=== PATIENT | male | born 1940 | race Caucasian/White ===

== ENCOUNTER 2016-10-27 12:26 | Day surgery (SDC) | payer MEDICARE, OTHER ==
[2016-10-27] MEDS ORDERED: LACTATED RINGERS 1,000 ML IV ONE (12:55)
[2016-10-27] MEDS ORDERED: MIDAZOLAM 2 MG/2 ML VIAL IVP ONE (13:20)
[2016-10-27] MEDS ORDERED: fentaNYL 250 MCG/5 ML VIAL IVP ONE (13:20)
[2016-10-27] MEDS ORDERED: SIMETHICONE 40 MG/0.6 ML 30 ML BOTTLE PO ONE (13:21)
== END 2016-10-27 12:27 | disposition home or self-care (01) ==
PROC: 0DJD8ZZ Inspection of Lower Intestinal Tract, Via Natural or Artificial Opening Endoscopic (ICD-10-PCS; principal; 2016-10-27 13:30)
DX: Z12.11 Encounter for screening for malignant neoplasm of colon (principal); K64.8 Other hemorrhoids; K57.30 Diverticulosis of large intestine without perforation or abscess without bleeding; Z86.010 Personal history of colon polyps; E11.9 Type 2 diabetes mellitus without complications; Z79.84 Long term (current) use of oral hypoglycemic drugs; Z79.82 Long term (current) use of aspirin; E78.00 Pure hypercholesterolemia, unspecified; E66.9 Obesity, unspecified; Z68.38 Body mass index [BMI] 38.0-38.9, adult
CPT/HCPCS: A9270; G0121; J3010; J7120

== ENCOUNTER 2017-08-13 17:00 | Outpatient (CLI) | payer MEDICARE, OTHER ==
--- NOTE | 2017-08-13 17:38 | XRAY Preliminary Report ---
Exam: XR CHEST 2 VIEW PA/LAT IMPRESSION: No focal pneumonia. [facility] SITE ID: [id number]
--- NOTE | 2017-08-13 17:41 | XRAY Report ---
EXAM: CHEST RADIOGRAPHY EXAM DATE: 08/13/2017 05:25 PM. CLINICAL HISTORY: WHEEZING,COUGH. COMPARISON: None. TECHNIQUE: 2 views. FINDINGS: Lungs/Pleura: No focal opacities evident. No pleural effusion. No pneumothorax. Normal volumes. Mediastinum: The heart size is normal. Previous sternotomy noted with multiple fractured sternotomy w ires. Other: None. IMPRESSION: No focal pneumonia. [facility] Referring Provider Line: [phone] SITE ID: [id number]
== END 2017-08-13 17:01 | disposition home or self-care (01) ==
LOC: DI 17:00
PROVIDERS: ATTEND Internal Medicine
DX: R05 Cough (principal); R06.2 Wheezing; R06.09 Other forms of dyspnea
CPT/HCPCS: 71020; 83880

== ENCOUNTER 2018-01-19 15:48 | Outpatient (CLI) | payer MEDICARE, OTHER ==
[2018-01-19 16:20] LABS: CALCIUM 8.2 mg/dL (8.5-10.3); CREATININE 1.2 mg/dL (0.6-1.2)
== END 2018-01-19 15:49 | disposition home or self-care (01) ==
LOC: LAB 15:48
PROVIDERS: ATTEND Internal Medicine Cardiovascular Disease
DX: Z79.899 Other long term (current) drug therapy (principal)
CPT/HCPCS: 36415; 80048

== ENCOUNTER 2018-03-12 20:25 | Emergency (ER) | payer MEDICARE, OTHER ==
--- NOTE | 2018-03-12 20:48 | ED Physician Documentation ---
PD HPI BACK PAIN - Stated complaint Stated Complaint: VOMIT/BACK PX - Chief complaint Chief Complaint: Abd Pain - History obtained from History obtained from: Patient - History of Present Illness Timing - onset: Enter time (1629), Today Timing - duration: Hours Timing - details: Abrupt onset, Still present Location: Mid Quality: Pain Associated symptoms: No: Fever, Weakness, Numbness, Incontinent of urine, Hematuria, Incontinent of stool Improves with: Rest, Position Worsened by: Movement Similar symptoms before: Has not had sx before Recently seen: Not recently seen - Additional information Additional information: 77-year-old male was well yesterday and earlier today and at about 430 this afternoon he began developed some pain across his mid abdomen and has distention of his abdomen and a fair amount of eructations. He has not had a bowel movement today and he is not passing flatus. He has had a prior cholecystectomy and quintuple bypass. He denies chest pain he denies shortness of breath he denies any recent illness. He recalls eating a related hamburger for lunch today at about 1 PM., He does not drink alcohol. Review of Systems Constitutional: denies: Fever Eyes: denies: Decreased vision Ears: denies: Ear pain Nose: denies: Congestion Throat: denies: Sore throat Cardiac: denies: Chest pain / pressure, Palpitations Respiratory: denies: Dyspnea, Cough GI: reports: Abdominal Pain, Abdominal Swelling, Vomiting. denies: Nausea, Constipation, Diarrhea : denies: Dysuria, Frequency Skin: denies: Rash Musculoskeletal: reports: Back pain. denies: Neck pain, Extremity pain Neurologic: denies: Generalized weakness, Focal weakness, Numbness PD PAST MEDICAL HISTORY - Past Medical History Cardiovascular: Hypertension, High cholesterol, Coronary artery disease, [place], Murmur Respiratory: None Endocrine/Autoimmune: Type 2 diabetes GI: Colon polyps : Benign prostate hypertrophy HEENT: None Psych: None Musculoskeletal: None, Osteoarthritis Derm: None - Past Surgical History General: Cholecystectomy, Colonoscopy Ortho: Spine surgery Cardiovascular: CABG, Cardiac catheterization, Other - Present Medications Home Medications: Ambulatory Orders Medication Instructions Recorded Confirmed Aspirin 2 tab PO DAILY 10/24/16 10/24/16 Atorvastatin Calcium [Lipitor] 40 mg PO DAILY 10/24/16 10/27/16 Glipizide [Glipizide Xl] 2.5 mg PO DAILY 10/24/16 10/27/16 Losartan Potassium 100 mg PO DAILY 10/24/16 10/27/16 Metformin HCl 500 tab PO BID 10/24/16 10/27/16 Metoprolol Succinate [Toprol Xl] 150 mg PO DAILY 10/24/16 10/27/16 Ubidecarenone [Co Q-10] 200 mg PO DAILY 10/24/16 10/27/16 amLODIPine [Norvasc] 2.5 mg PO ONCE 03/12/18 03/12/18 - Allergies Allergies/Adverse Reactions: Allergies Allergy/AdvReac Type Severity Reaction Status Date / Time ticlopidine HCl * Allergy Rash Verified 10/24/16 15:13 [From Ticlid] PD ED PE NORMAL - Vitals Vital signs reviewed: Yes (hypertensive) - General General: Alert and oriented X 3, Well developed/nourished, Other (a fading look to the face) - HEENT HEENT: Atraumatic, PERRL, EOMI - Neck Neck: Supple, no meningeal sign - Cardiac Cardiac: RRR - Respiratory Respiratory: No respiratory distress, Clear bilaterally - Abdomen Abdomen: Other (The abdomen is distended and tympanitic the tenderness is mild and there is not flank tenderness. 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, No motor deficit, No sensory deficit, Normal speech Eye Opening: Spontaneous Motor: Obeys Commands Verbal: Oriented GCS Score: 15 - Psych Psych: Normal mood, Normal affect Results - Vitals Vitals: Vital Signs - 24 hr 03/12/18 03/12/18 03/12/18 20:28 21:18 22:00 Temperature 35.9 C L Heart Rate 74 65 61 Respiratory 18 18 17 Rate Blood Pressure 163/78 H 153/65 H 130/58 L O2 Saturation 97 95 96 03/12/18 03/12/18 03/12/18 22:05 22:35 23:21 Temperature Heart Rate 60 Respiratory 17 17 17 Rate Blood Pressure 146/63 H O2 Saturation 95 03/13/18 00:36 Temperature 36.7 C Heart Rate 71 Respiratory 18 Rate Blood Pressure 155/72 H O2 Saturation 99 Oxygen O2 Source Room air - EKG (time done) 2036 Rate: Rate (enter#) (73) Rhythm: NSR Intervals: RBBB Compare to prior EKG: Unchanged from prior EKG (09-27-15) Computer interpretation: Agree with computer - Labs Labs: Laboratory Tests 03/12/18 03/12/18 03/12/18 21:00 21:00 21:00 WBC 11.0 H RBC 4.54 L Hgb 13.9 L Hct 42.1 MCV 92.8 MCH 30.6 MCHC 33.0 RDW 13.8 Plt Count 135 MPV 8.6 Neut # (Auto) 8.9 H Lymph # (Auto) 1.6 [place] # (Auto) 0.4 Eos # (Auto) 0.0 Baso # (Auto) 0.0 Absolute Nucleated RBC 0.00 Nucleated RBC % 0.0 Sodium 136 Potassium 4.5 Chloride 95 L Carbon Dioxide 29 Anion Gap 12.0 BUN 27 H Creatinine 1.6 H Estimated GFR (MDRD) 42 L Glucose 272 H Calcium 9.2 Total Bilirubin 4.0 H AST 1138 H ALT 601 H Alkaline Phosphatase 144 H Troponin I < 0.04 Total Protein 8.0 Albumin 4.2 Globulin 3.8 Albumin/Globulin Ratio 1.1 Lipase > 4800 H - Rads (name of study) CT abd/pel without Radiology: Prelim report reviewed (Impression: 1. Mild fat stranding around the head of the pancreas compatible with mild pancreatitis left base atelectasis in the lungs gallstones right adrenal mass. Consider one-year follow-up bilateral fat-containing inguinal hernias.), EMP read indepedently, See rad report PD MEDICAL DECISION MAKING - ED course Complexity details: reviewed old records, reviewed results, re-evaluated patient , considered differential, d/w patient, d/w family ED course: 77-year-old male who is status post cholecystectomy 3-4 years ago with a gangrenous gallbladder that required open removal has developed acute pancreatitis. He has elevation of his bilirubin to about 4 and he does state that he has Jermaine Bare's. On his CT scan there does appear to be a remnant of the gallbladder and there is a question of possible calcification within the pancreas itself. There are no dilated ducts within the liver visible on CT scanning. There is still question of possible gallstone pancreatitis and for this reason he will need to be transferred to [facility] in [place]. Over this weekend specifically we do not have access to our MRI scanner to get MRCP. The patient has some improvement in his pain with use of Dilaudid and improvement in his vomiting with Zofran and and he has IV running at 200 mL's an hour. I have spoken to the hospitalist at [facility] in [place] Dr. Chanda Albert and she graciously accepts the patient in transfer. - Sepsis Event Vital Signs: Vital Signs - 24 hr 03/12/18 03/12/18 03/12/18 20:28 21:18 22:00 Temperature 35.9 C L Heart Rate 74 65 61 Respiratory 18 18 17 Rate Blood Pressure 163/78 H 153/65 H 130/58 L O2 Saturation 97 95 96 03/12/18 03/12/18 03/12/18 22:05 22:35 23:21 Temperature Heart Rate 60 Respiratory 17 17 17 Rate Blood Pressure 146/63 H O2 Saturation 95 03/13/18 00:36 Temperature 36.7 C Heart Rate 71 Respiratory 18 Rate Blood Pressure 155/72 H O2 Saturation 99 Oxygen O2 Source Room air Departure - Departure Disposition: 02 Transfer Acute Care Hosp Clinical Impression: Pancreatitis, acute Qualifiers: Pancreatitis type: unspecified pancreatitis type Acute pancreatitis complication: unspecified Qualified Code(s): K85.90 - Acute pancreatitis without necrosis or infection, unspecified
[2018-03-12] MEDS ORDERED: SODIUM CHLORIDE 0.9% 1,000 ML IV ONE (21:02)
[2018-03-12] MEDS ORDERED: ONDANSETRON 4 MG/2 ML VIAL IVP STA (21:02)
[2018-03-12 21:17] LABS: BASOPHILS % (AUTO) 0.4 %; EOSINOPHILS % (AUTO) 0.1 %; HGB - HEMOGLOBIN 13.9 g/dL (14.0-18.0); LYMPHOCYTES # (AUTO) 1.6 10^3/uL (1.5-3.5); LYMPHOCYTES % (AUTO) 14.3 %; MEAN CORPUSCULAR HEMOGLOBIN 30.6 pg (27.0-31.0); MEAN CORPUSCULAR VOLUME 92.8 fL (80.0-94.0); MEAN PLATELET VOLUME 8.6 fL (7.4-11.4); MONOCYTES # (AUTO) 0.4 10^3/uL (0.0-1.0); NEUTROPHILS # (AUTO) 8.9 10^3/uL (1.5-6.6); NEUTROPHILS % (AUTO) 81.2 %; PLT - PLATELET COUNT 135 10^3/uL (130-450); RED BLOOD COUNT 4.54 10^6/uL (4.70-6.10); RED CELL DISTRIBUTION WIDTH 13.8 % (12.0-15.0)
[2018-03-12 21:46] LABS: ALBUMIN 4.2 g/dL (3.2-5.5); ALBUMIN/GLOBULIN RATIO 1.1 (1.0-2.2); ALKALINE PHOSPHATASE 144 IU/L (42-121); ALT ALANINE AMINOTRANSFERASE 601 IU/L (10-60); AST ASPARTATE AMINOTRANSFERASE 1138 IU/L (10-42); BUN - BLOOD UREA NITROGEN 27 mg/dL (6-20); CALCIUM 9.2 mg/dL (8.5-10.3); CARBON DIOXIDE - CO2 29 mmol/L (21-32); CHLORIDE 95 mmol/L (101-111); CREATININE 1.6 mg/dL (0.6-1.2); GFR - MDRD 42 (>89); GLUCOSE 272 mg/dL (70-100); SODIUM 136 mmol/L (135-145)
[2018-03-12] MEDS ORDERED: HYDROmorphone 1 MG/ML CARPUJECT IVP STA (21:55)
[2018-03-12 22:23] LABS: LIPASE > 4800 U/L (22-51)
--- NOTE | 2018-03-12 23:40 | CT Report ---
Procedure Date: 03/12/2018 Accession Number: [id number] / [id number] Procedure: CT - Abdomen/Pelvis W/O CPT Code: FULL RESULT: EXAM: CT ABDOMEN AND PELVIS EXAM DATE: 03/12/2018 10:51 PM. CLINICAL HISTORY: Abdominal distention. Pain. Vomiting. COMPARISONS: None. TECHNIQUE: Routine helical CT imaging was performed through the abdomen and pelvis. IV contrast: None. Enteric contrast: No. Reconstructions: Coronal and sagittal. In accordance with CT protocol optimization, one or more of the following dose reduction techniques were utilized for this exam: automated exposure control, adjustment of mA and/or KV based on patient size, or use of iterative reconstructive technique. FINDINGS: Lung Bases: Left base atelectasis. Liver: Normal. No masses. Gallbladder/Bile Ducts: Gallstones. Clips adjacent to the gallbladder. No dilated ducts. Spleen: Normal. Pancreas: Mild fat stranding around the head of the pancreas. Adrenal Glands: Unremarkable left adrenal. 2.4 x 3.1 cm right adrenal mass with CT numbers 13-19. Kidneys: Normal. No masses or hydronephrosis. Peritoneal Cavity/Bowel: Normal. No free fluid, free air or adenopathy. No masses or acute inflammatory process. The appendix is well visualized and normal. Pelvic Organs: Normal. The bladder and visualized pelvic organs are within normal limits. Vasculature: No aneurysms or other significant abnormality. Bones: No significant abnormality. Other: Bilateral fat-containing inguinal hernias. IMPRESSION: 1. Mild fat stranding around the head of pancreas compatible with mild pancreatitis. 2. Left base atelectasis in the lungs. 3. Gallstones. 4. Right adrenal mass. Consider one-year follow-up. 5. Bilateral fat-containing inguinal hernias. [facility]
[2018-03-13 00:37] VITALS: BP 155/72
[2018-03-13] MEDS ORDERED: HYDROmorphone 1 MG/ML CARPUJECT IVP STA (01:09)
[2018-03-13] MEDS ORDERED: ONDANSETRON 4 MG/2 ML VIAL IVP STA (01:09)
== END 2018-03-13 03:00 | disposition short-term general hospital (02) ==
LOC: ED 20:25
DX: K85.90 Acute pancreatitis without necrosis or infection, unspecified (principal); I45.10 Unspecified right bundle-branch block; I25.10 Atherosclerotic heart disease of native coronary artery without angina pectoris; I10 Essential (primary) hypertension; I25.2 Old myocardial infarction; E78.00 Pure hypercholesterolemia, unspecified; Z79.82 Long term (current) use of aspirin; Z95.1 Presence of aortocoronary bypass graft; Z98.890 Other specified postprocedural states
CPT/HCPCS: 36415; 74176; 80053; 83690; 84484; 85025; 93005; 96361; 96374; 96375; 96376; 99284; 99285; J1170

== ENCOUNTER 2018-04-07 12:05 | Outpatient (CLI) | payer MEDICARE, OTHER ==
[2018-04-07 13:18] LABS: BASOPHILS % (AUTO) 0.4 %; EOSINOPHILS # (AUTO) 0.4 10^3/uL (0.0-0.7); HGB - HEMOGLOBIN 10.5 g/dL (14.0-18.0); LYMPHOCYTES # (AUTO) 2.6 10^3/uL (1.5-3.5); LYMPHOCYTES % (AUTO) 36.3 %; MEAN CORPUSCULAR HEMOGLOBIN 31.1 pg (27.0-31.0); MEAN CORPUSCULAR HGB CONC 33.5 g/dL (32.0-36.0); MEAN CORPUSCULAR VOLUME 92.8 fL (80.0-94.0); MEAN PLATELET VOLUME 8.8 fL (7.4-11.4); MONOCYTES # (AUTO) 0.4 10^3/uL (0.0-1.0); MONOCYTES % (AUTO) 5.2 %; NEUTROPHILS # (AUTO) 3.8 10^3/uL (1.5-6.6); NEUTROPHILS % (AUTO) 53.1 %; PLT - PLATELET COUNT 128 10^3/uL (130-450); RED BLOOD COUNT 3.39 10^6/uL (4.70-6.10); RED CELL DISTRIBUTION WIDTH 16.3 % (12.0-15.0); WHITE BLOOD COUNT 7.1 x10^3/uL (4.8-10.8)
[2018-04-07 13:20] LABS: INR 1.1 (0.8-1.2)
[2018-04-07 13:23] LABS: ALBUMIN 3.3 g/dL (3.2-5.5); ALBUMIN/GLOBULIN RATIO 0.9 (1.0-2.2); BILIRUBIN,TOTAL 2.5 mg/dL (0.2-1.0); CALCIUM 8.5 mg/dL (8.5-10.3); CREATININE 1.9 mg/dL (0.6-1.2); TOTAL PROTEIN 6.8 g/dL (6.7-8.2)
[2018-04-07 13:32] LABS: BILIRUBIN,URINE NEGATIVE (NEGATIVE); CLARITY,URINE CLEAR (CLEAR); GLUCOSE, URINE (UA) NEGATIVE (NEGATIVE); KETONES,URINE (UA) NEGATIVE (NEGATIVE); LEUKOCYTE ESTERASE, URINE NEGATIVE (NEGATIVE); NITRITE,URINE NEGATIVE (NEGATIVE); OCCULT BLOOD,URINE NEGATIVE (NEGATIVE); PROTEIN,URINE NEGATIVE (NEGATIVE); UROBILINOGEN,URINE 0.2 (NORMAL) E.U./dL (NORMAL)
[2018-04-07 13:36] LABS: D-DIMER 291.7 ng/mL (200.0-255.0)
[2018-04-07 13:58] LABS: DIFFERENTIAL COMMENT MANUAL=AUTO DIFF; RBC MORPHOLOGY (MULTIPLE) 3+ ANISOCYTOSIS (NORMAL)
== END 2018-04-07 12:06 | disposition home or self-care (01) ==
LOC: LAB 12:05
PROVIDERS: ATTEND Internal Medicine
DX: K85.10 Biliary acute pancreatitis without necrosis or infection (principal); R60.9 Edema, unspecified; R21 Rash and other nonspecific skin eruption
CPT/HCPCS: 36415; 80053; 81001; 81003; 82150; 83690; 85025; 85379; 85610; 85730; 87040; 87086